=== PATIENT | female | born 1990 | race Caucasian/White ===

== ENCOUNTER → 2016-08-09 | Outpatient (CLI) | payer OTHER ==
[2016-08-09 10:45] LABS: Basophils # (auto) 0 uL; Basophils % (auto) 0.2 % (0.0-2.0); Eosinophils # (auto) 0 uL; Eosinophils % (auto) 0.5 % (0.0-7.0); Hematocrit 40.3 % (36.0-46.0); Hemoglobin 13.5 g/dL (12.2-16.2); Lymphocytes % (auto) 18.8 % (10.0-50.0); Mean Corpuscular Hemoglobin 29.6 pg (28.0-32.0); Mean Corpuscular Hgb Conc. 33.5 g/dL (32.0-36.0); Mean Corpuscular Volume 88.4 fL (80.0-100.0); Mean Platelet Volume 8.7 fL (7.4-10.4); Monocytes # (auto) 0.3 uL; Monocytes % (auto) 5.8 % (0.0-12.0); Neutrophils # (auto) 4.1 uL; Neutrophils % (auto) 74.7 % (37.0-80.0); Platelet Count (auto) 281 10^3/uL (140-450); White Blood Cell 5.5 10^3/uL (4.4-10.8)
== END | disposition home or self-care (01) ==
LOC: LAB 10:12
PROVIDERS: ATTEND Obstetrics & Gynecology
DX: Z34.80 Encounter for supervision of other normal pregnancy, unspecified trimester (principal); Z11.3 Encounter for screening for infections with a predominantly sexual mode of transmission
CPT/HCPCS: 36415; 83036; 84144; 84702; 85025; 86703; 86762; 86850; 86900; 86901; 87086; 87340

== ENCOUNTER → 2016-12-05 | Outpatient (CLI) | payer OTHER | END | disposition home or self-care (01) | LOC: CANPRECLI → LAB 07:51 | PROVIDERS: ATTEND Obstetrics & Gynecology | DX: Z53.9 Procedure and treatment not carried out, unspecified reason (principal) ==

== ENCOUNTER → 2016-12-13 | Outpatient (CLI) | payer OTHER ==
[2016-12-13 08:31] LABS: Basophils # (auto) 0.1 uL; Basophils % (auto) 0.8 % (0.0-2.0); Eosinophils # (auto) 0.1 uL; Hematocrit 35.8 % (36.0-46.0); Hemoglobin 12.3 g/dL (12.2-16.2); Lymphocytes # (auto) 1.8 uL; Lymphocytes % (auto) 20.8 % (10.0-50.0); Mean Corpuscular Hemoglobin 30.5 pg (28.0-32.0); Mean Corpuscular Hgb Conc. 34.4 g/dL (32.0-36.0); Mean Corpuscular Volume 88.6 fL (80.0-100.0); Mean Platelet Volume 8.2 fL (6.9-10.8); Monocytes # (auto) 0.6 uL; Monocytes % (auto) 6.7 % (0.0-12.0); Neutrophils # (auto) 6.3 uL; Neutrophils % (auto) 70.7 % (37.0-80.0); Platelet Count (auto) 201 10^3/uL (140-450); Red Cell Distribution Width 13.7 % (11.8-14.3); White Blood Cell 8.9 10^3/uL (4.4-10.8)
== END | disposition home or self-care (01) ==
LOC: LAB 08:14
PROVIDERS: ATTEND Obstetrics & Gynecology
DX: O99.810 Abnormal glucose complicating pregnancy (principal)
CPT/HCPCS: 36415; 82951; 83036; 85025

== ENCOUNTER → 2017-01-23 | Outpatient (CLI) | payer OTHER ==
[2017-01-23 10:03] LABS: Basophils # (auto) 0 uL; Basophils % (auto) 0.3 % (0.0-2.0); Eosinophils # (auto) 0 uL; Eosinophils % (auto) 0.5 % (0.0-7.0); Hematocrit 38.4 % (36.0-46.0); Lymphocytes # (auto) 1.3 uL; Lymphocytes % (auto) 15.5 % (10.0-50.0); Mean Corpuscular Hgb Conc. 33.7 g/dL (32.0-36.0); Mean Corpuscular Volume 88.8 fL (80.0-100.0); Monocytes # (auto) 0.5 uL; Monocytes % (auto) 6.4 % (0.0-12.0); Neutrophils # (auto) 6.4 uL; Neutrophils % (auto) 77.3 % (37.0-80.0); Nucleated Red Blood Cells % 0.1 %; Platelet Count (auto) 177 10^3/uL (140-450); Red Cell Distribution Width 13.5 % (11.8-14.3); White Blood Cell 8.3 10^3/uL (4.4-10.8)
== END | disposition home or self-care (01) ==
LOC: LAB 09:33
PROVIDERS: ATTEND Obstetrics & Gynecology
DX: Z34.80 Encounter for supervision of other normal pregnancy, unspecified trimester (principal); Z3A.00 Weeks of gestation of pregnancy not specified; N76.0 Acute vaginitis
CPT/HCPCS: 36415; 83036; 85025; 87081

== ENCOUNTER 2017-02-06 15:28 | Observation (INO) | payer OTHER ==
[2017-02-06 16:19] LABS: Basophils # (auto) 0 uL; Basophils % (auto) 0.1 % (0.0-2.0); Eosinophils # (auto) 0 uL; Eosinophils % (auto) 0.4 % (0.0-7.0); Hematocrit 39.2 % (36.0-46.0); Hemoglobin 13.5 g/dL (12.2-16.2); Lymphocytes # (auto) 1.5 uL; Lymphocytes % (auto) 17.1 % (10.0-50.0); Mean Corpuscular Hemoglobin 30.9 pg (28.0-32.0); Mean Corpuscular Hgb Conc. 34.5 g/dL (32.0-36.0); Mean Corpuscular Volume 89.6 fL (80.0-100.0); Mean Platelet Volume 9.7 fL (6.9-10.8); Monocytes # (auto) 0.5 uL; Neutrophils # (auto) 6.7 uL; Neutrophils % (auto) 76.4 % (37.0-80.0); Nucleated Red Blood Cells % 0.1 %; Platelet Count (auto) 175 10^3/uL (140-450); Red Cell Distribution Width 13.7 % (11.8-14.3); White Blood Cell 8.8 10^3/uL (4.4-10.8)
[2017-02-06 17:37] LABS: Albumin 2.5 g/dL (3.4-5.0); BUN/Creatinine Ratio 12.7; Bilirubin, Total 0.2 mg/dL (0.2-1.0); Calcium 8.6 mg/dL (8.5-10.1); Potassium 3.5 mmol/L (3.5-5.1); Total Protein 6.8 g/dL (6.4-8.2)
== END 2017-02-06 17:40 | disposition home or self-care (01) | DRG 782 ==
LOC: LAB 15:28 → LDRP 15:45
PROVIDERS: ADMIT Specialist; ATTEND Specialist
DX: O62.9 Abnormality of forces of labor, unspecified (principal); Z3A.37 37 weeks gestation of pregnancy
CPT/HCPCS: 36415; 59025; 80053; 81002; 84156; 84550; 85025; G0378

== ENCOUNTER 2017-02-13 14:03 | Observation (INO) | payer OTHER ==
[2017-02-13 15:44] LABS: Basophils # (auto) 0 uL; Basophils % (auto) 0.2 % (0.0-2.0); Eosinophils # (auto) 0 uL; Eosinophils % (auto) 0.4 % (0.0-7.0); Hematocrit 36.7 % (36.0-46.0); Hemoglobin 12.6 g/dL (12.2-16.2); Lymphocytes # (auto) 1.5 uL; Lymphocytes % (auto) 17.2 % (10.0-50.0); Mean Corpuscular Hemoglobin 30.3 pg (28.0-32.0); Mean Corpuscular Hgb Conc. 34.2 g/dL (32.0-36.0); Mean Corpuscular Volume 88.7 fL (80.0-100.0); Mean Platelet Volume 9.9 fL (6.9-10.8); Monocytes # (auto) 0.5 uL; Monocytes % (auto) 6.1 % (0.0-12.0); Neutrophils # (auto) 6.5 uL; Neutrophils % (auto) 76.1 % (37.0-80.0); Nucleated Red Blood Cells % 0.1 %; Platelet Count (auto) 175 10^3/uL (140-450); Red Cell Distribution Width 13.4 % (11.8-14.3); White Blood Cell 8.6 10^3/uL (4.4-10.8)
[2017-02-13 15:54] LABS: INR 0.93 (0.9-1.15); Partial Thromboplastin Time 27.5 sec (22.64-33.71); Prothrombin Time 10.1 sec (9.37-12.3)
[2017-02-13 15:54] LABS: Urine RBC None Seen /hpf (0 - 4)
[2017-02-13 15:55] LABS: Albumin 2.4 g/dL (3.4-5.0); BUN/Creatinine Ratio 13.4; Bilirubin, Total 0.2 mg/dL (0.2-1.0); Calcium 8.5 mg/dL (8.5-10.1); Potassium 3.7 mmol/L (3.5-5.1); Total Protein 6.4 g/dL (6.4-8.2); Uric Acid 4.5 mg/dL (2.6-6.0)
[2017-02-13 16:10] LABS: Urine Bilirubin Negative (Negative); Urine Blood Negative /uL (Negative); Urine Color Yellow (Yellow); Urine Glucose Normal (Normal); Urine Ketone Negative (Negative); Urine Nitrite Negative (Negative); Urine Squamous Epithelial Cell FEW /hpf (<5); Urine Urobilinogen Normal (Negative)
== END 2017-02-13 16:20 | disposition home or self-care (01) | DRG 781 ==
LOC: LDRP 14:03
PROVIDERS: ADMIT Obstetrics & Gynecology; ATTEND Obstetrics & Gynecology
DX: O26.893 Other specified pregnancy related conditions, third trimester (principal); N85.8 Other specified noninflammatory disorders of uterus; Z3A.38 38 weeks gestation of pregnancy
CPT/HCPCS: 36415; 59025; 80053; 81001; 81002; 84550; 85025; 85610; 85730; G0378

== ENCOUNTER 2017-02-22 10:40 | Observation (INO) | payer OTHER ==
[2017-02-22 12:24] LABS: Basophils # (auto) 0 uL; Basophils % (auto) 0.3 % (0.0-2.0); Eosinophils # (auto) 0 uL; Eosinophils % (auto) 0.5 % (0.0-7.0); Hematocrit 37.6 % (36.0-46.0); Lymphocytes # (auto) 1.6 uL; Lymphocytes % (auto) 18.1 % (10.0-50.0); Mean Corpuscular Hemoglobin 30.5 pg (28.0-32.0); Mean Corpuscular Hgb Conc. 34.4 g/dL (32.0-36.0); Mean Corpuscular Volume 88.6 fL (80.0-100.0); Mean Platelet Volume 10.2 fL (6.9-10.8); Monocytes # (auto) 0.5 uL; Monocytes % (auto) 5.3 % (0.0-12.0); Neutrophils # (auto) 6.6 uL; Neutrophils % (auto) 75.8 % (37.0-80.0); Nucleated Red Blood Cells % 0.1 %; Platelet Count (auto) 164 10^3/uL (140-450); Red Cell Distribution Width 13.7 % (11.8-14.3); White Blood Cell 8.7 10^3/uL (4.4-10.8)
[2017-02-22 12:38] LABS: INR 0.93 (0.9-1.15); Partial Thromboplastin Time 26.4 sec (22.64-33.71); Prothrombin Time 10.1 sec (9.37-12.3)
[2017-02-22 12:44] LABS: Albumin 2.5 g/dL (3.4-5.0); BUN/Creatinine Ratio 13.4; Bilirubin, Total 0.2 mg/dL (0.2-1.0); Calcium 8.4 mg/dL (8.5-10.1); Potassium 3.6 mmol/L (3.5-5.1); Total Protein 6.5 g/dL (6.4-8.2); Uric Acid 4.2 mg/dL (2.6-6.0)
[2017-02-22 13:51] LABS: Urine Bilirubin Negative (Negative); Urine Blood 1+ /uL (Negative); Urine Color Yellow (Yellow); Urine Glucose Normal (Normal); Urine Ketone Negative (Negative); Urine Nitrite Negative (Negative); Urine RBC 2 /hpf (0 - 4); Urine Squamous Epithelial Cell FEW /hpf (<5); Urine Urobilinogen Normal (Negative)
[2017-02-22] MEDS ORDERED: PREN-145 OR (14:50)
== END 2017-02-22 13:15 | disposition home or self-care (01) | DRG 781 ==
LOC: LDRP 10:40
PROVIDERS: ADMIT Obstetrics & Gynecology; ATTEND Obstetrics & Gynecology
DX: O13.3 Gestational [pregnancy-induced] hypertension without significant proteinuria, third trimester (principal); O24.410 Gestational diabetes mellitus in pregnancy, diet controlled; O26.893 Other specified pregnancy related conditions, third trimester; R10.9 Unspecified abdominal pain; Z3A.39 39 weeks gestation of pregnancy
CPT/HCPCS: 36415; 59025; 80053; 81001; 81002; 84156; 84550; 85025; 85362; 85610; 85730; G0378

== ENCOUNTER 2017-02-27 11:30 | Observation (INO) | payer OTHER ==
[~2017-02-27 11:30] MED LIST: PREN-145 OR
[2017-02-27 12:40] LABS: Basophils # (auto) 0 uL; Basophils % (auto) 0.3 % (0.0-2.0); Eosinophils # (auto) 0 uL; Eosinophils % (auto) 0.2 % (0.0-7.0); Hemoglobin 13.6 g/dL (12.2-16.2); Lymphocytes # (auto) 0.8 uL; Lymphocytes % (auto) 8.3 % (10.0-50.0); Mean Corpuscular Hemoglobin 30.3 pg (28.0-32.0); Mean Corpuscular Hgb Conc. 34.1 g/dL (32.0-36.0); Mean Corpuscular Volume 88.8 fL (80.0-100.0); Mean Platelet Volume 10.2 fL (6.9-10.8); Monocytes # (auto) 0.4 uL; Monocytes % (auto) 3.9 % (0.0-12.0); Neutrophils # (auto) 8.2 uL; Neutrophils % (auto) 87.3 % (37.0-80.0); Platelet Count (auto) 162 10^3/uL (140-450); Red Cell Distribution Width 13.8 % (11.8-14.3); White Blood Cell 9.5 10^3/uL (4.4-10.8)
[2017-02-27 12:53] LABS: INR 0.93 (0.9-1.15); Partial Thromboplastin Time 26.9 sec (22.64-33.71); Prothrombin Time 10.1 sec (9.37-12.3)
[2017-02-27 13:12] LABS: Albumin 2.5 g/dL (3.4-5.0); BUN/Creatinine Ratio 12.7; Bilirubin, Total 0.2 mg/dL (0.2-1.0); Calcium 8.5 mg/dL (8.5-10.1); Potassium 3.8 mmol/L (3.5-5.1); Total Protein 6.7 g/dL (6.4-8.2); Uric Acid 4.9 mg/dL (2.6-6.0)
[2017-02-27 13:27] LABS: Urine Bilirubin Negative (Negative); Urine Blood 1+ /uL (Negative); Urine Color Yellow (Yellow); Urine Glucose Normal (Normal); Urine Ketone Negative (Negative); Urine Nitrite Negative (Negative); Urine RBC <1 /hpf (0 - 4); Urine Squamous Epithelial Cell FEW /hpf (<5); Urine Urobilinogen Normal (Negative); Urine pH 5.5 (5.0-8.0)
== END 2017-02-27 13:35 | disposition home or self-care (01) | DRG 781 ==
LOC: LDRP 11:30
PROVIDERS: ADMIT Specialist; ATTEND Specialist
DX: O14.93 Unspecified pre-eclampsia, third trimester (principal); O24.419 Gestational diabetes mellitus in pregnancy, unspecified control; J45.909 Unspecified asthma, uncomplicated; O48.0 Post-term pregnancy; O13.3 Gestational [pregnancy-induced] hypertension without significant proteinuria, third trimester; O99.513 Diseases of the respiratory system complicating pregnancy, third trimester; Z3A.40 40 weeks gestation of pregnancy
CPT/HCPCS: 36415; 59025; 80053; 81001; 81002; 84550; 85025; 85362; 85610; 85730; 86850; 86900; 86901; G0378

== ENCOUNTER 2017-02-27 18:12 | Observation (INO) | payer OTHER, MEDICAID | END 2017-02-27 19:40 | disposition home or self-care (01) | DRG 782 | LOC: LDRP 18:12 | PROVIDERS: ADMIT Specialist; ATTEND Specialist | DX: O62.9 Abnormality of forces of labor, unspecified (principal); Z3A.40 40 weeks gestation of pregnancy | CPT/HCPCS: 59025; 81002; G0378 ==

== ENCOUNTER → 2019-06-16 | Outpatient (CLI) | payer OTHER, MEDICAID ==
[2019-06-16 16:03] LABS: Basophils # (auto) 0 10 ^3/uL (0-0.2); Basophils % (auto) 0.4 % (0.0-2.0); Eosinophils # (auto) 0.2 10 ^3/uL (0-0.8); Eosinophils % (auto) 2.4 % (0.0-7.0); Hematocrit 40.1 % (36.0-46.0); Hemoglobin 14.1 g/dL (12.2-16.2); Lymphocytes # (auto) 1.8 10 ^3/uL (0.4-5.4); Lymphocytes % (auto) 26.1 % (10.0-50.0); Mean Corpuscular Hemoglobin 29.9 pg (28.0-32.0); Mean Corpuscular Hgb Conc. 35.1 g/dL (32.0-36.0); Mean Corpuscular Volume 85.3 fL (80.0-100.0); Monocytes # (auto) 0.4 10 ^3/uL (0-1.3); Monocytes % (auto) 5.9 % (0.0-12.0); Neutrophils # (auto) 4.5 10 ^3/uL (1.6-8.6); Neutrophils % (auto) 65.2 % (37.0-80.0); Nucleated Red Blood Cells % 0.1 %; Platelet Count (auto) 282 10^3/uL (140-450); Red Blood Cells 4.71 10^6/uL (4.0-5.20); Red Cell Distribution Width 13.6 % (11.8-14.3); White Blood Cell 6.9 10^3/uL (4.4-10.8)
[2019-06-16 16:30] LABS: Alcohol, Urine < 3.0 mg/dL (0-5); Amphetamine Screen, Urine NEGATIVE (NEGATIVE); Barbiturate Scree,Urine NEGATIVE (NEGATIVE); Benzodiazephine Screen, Urine NEGATIVE (NEGATIVE); Cannabinoid Screen, Urine NEGATIVE (NEGATIVE); Cocaine Screen, Urine NEGATIVE (NEGATIVE); Opiate Scree,Urine NEGATIVE (NEGATIVE); Phencyclidine Screen, Urine NEGATIVE (NEGATIVE)
[2019-06-17 03:06] LABS: RPR Non Reactive (Non Reactive)
== END | disposition home or self-care (01) ==
LOC: LAB 15:37
PROVIDERS: ATTEND Obstetrics & Gynecology
DX: Z11.3 Encounter for screening for infections with a predominantly sexual mode of transmission (principal)
CPT/HCPCS: 36415; 80307; 81220; 83036; 84144; 84702; 85025; 86592; 86703; 86762; 86765; 86850; 86900; 86901; 87086; 87340

== ENCOUNTER 2019-11-28 10:20 | Observation (INO) | payer MEDICAID ==
[~2019-11-28] VITALS: Ht 198.1 cm; Wt 119.7 kg
[2019-11-28] MEDS ORDERED: METF-370 PO (11:37)
[2019-11-28] MEDS ORDERED: TERBUTALINE SULFATE 1 MG/ML 1ML VIAL SC SCH (11:45)
== END 2019-11-28 12:55 | disposition home or self-care (01) ==
LOC: LDRP 10:20
PROVIDERS: ADMIT Obstetrics & Gynecology; ATTEND Obstetrics & Gynecology
DX: O60.03 Preterm labor without delivery, third trimester (principal); O24.419 Gestational diabetes mellitus in pregnancy, unspecified control; O62.9 Abnormality of forces of labor, unspecified; Z3A.32 32 weeks gestation of pregnancy
CPT/HCPCS: 59025; 76818; 81002; 82948; 82962; 96372; G0378; J3105

== ENCOUNTER 2019-12-02 11:00 | Observation (INO) | payer MEDICAID ==
[~2019-12-02 11:00] MED LIST changes: +METF-370 PO
[2019-12-02] MEDS ORDERED: GLY25T GT (11:58)
== END 2019-12-02 12:33 | disposition home or self-care (01) ==
LOC: LDRP 11:00
PROVIDERS: ADMIT Specialist; ATTEND Specialist
DX: O60.03 Preterm labor without delivery, third trimester (principal); O24.419 Gestational diabetes mellitus in pregnancy, unspecified control; Z3A.33 33 weeks gestation of pregnancy
CPT/HCPCS: 59025; 76818; 81002; 82948; 82962; G0378

== ENCOUNTER 2019-12-03 17:20 | Observation (INO) | payer MEDICAID ==
[~2019-12-03 17:20] MED LIST changes: +GLY25T PO; -PREN-145 OR; +PREN-145 PO
== END 2019-12-03 19:42 | disposition home or self-care (01) ==
LOC: LDRP 17:20
PROVIDERS: ADMIT Specialist; ATTEND Specialist
DX: O36.8130 Decreased fetal movements, third trimester, not applicable or unspecified (principal); O24.415 Gestational diabetes mellitus in pregnancy, controlled by oral hypoglycemic drugs; O21.2 Late vomiting of pregnancy; O12.03 Gestational edema, third trimester; Z3A.32 32 weeks gestation of pregnancy; Z79.899 Other long term (current) drug therapy
CPT/HCPCS: 59025; 76818; 81002; 82962; G0378

== ENCOUNTER 2019-12-05 10:52 | Observation (INO) | payer MEDICAID ==
[~2019-12-05 10:52] MED LIST changes: +GLY25T GT; -GLY25T PO; +PREN-145 OR; -PREN-145 PO
== END 2019-12-05 11:56 | disposition home or self-care (01) ==
LOC: LDRP 10:52
PROVIDERS: ADMIT Specialist; ATTEND Specialist
DX: O24.419 Gestational diabetes mellitus in pregnancy, unspecified control (principal); O60.03 Preterm labor without delivery, third trimester; Z3A.32 32 weeks gestation of pregnancy
CPT/HCPCS: 59025; 76818; 81002; 82948; 82962; G0378

== ENCOUNTER 2019-12-09 08:19 | Observation (INO) | payer MEDICAID ==
[~2019-12-09 08:19] MED LIST changes: -GLY25T GT; +GLY25T PO; -PREN-145 OR; +PREN-145 PO
== END 2019-12-09 09:27 | disposition home or self-care (01) ==
LOC: LDRP 08:19
PROVIDERS: ADMIT Obstetrics & Gynecology; ATTEND Obstetrics & Gynecology
DX: O24.419 Gestational diabetes mellitus in pregnancy, unspecified control (principal); Z3A.33 33 weeks gestation of pregnancy
CPT/HCPCS: 59025; 76818; 81002; 82948; 82962; G0378

== ENCOUNTER 2019-12-11 19:34 | Observation (INO) | payer MEDICAID ==
[2019-12-11] MEDS ORDERED: NIF10C PO (21:21)
== END 2019-12-11 20:53 | disposition home or self-care (01) ==
LOC: LDRP 19:34
PROVIDERS: ADMIT Specialist; ATTEND Specialist
DX: O24.419 Gestational diabetes mellitus in pregnancy, unspecified control (principal); M79.89 Other specified soft tissue disorders; Z3A.33 33 weeks gestation of pregnancy
CPT/HCPCS: 59025; 81002; 82948; 82962; G0378

== ENCOUNTER 2019-12-15 09:49 | Observation (INO) | payer MEDICAID ==
[~2019-12-15 09:49] MED LIST changes: +NIF10C PO
== END 2019-12-15 11:08 | disposition home or self-care (01) ==
LOC: LDRP 09:49
PROVIDERS: ADMIT Obstetrics & Gynecology; ATTEND Obstetrics & Gynecology
DX: O60.03 Preterm labor without delivery, third trimester (principal); O24.415 Gestational diabetes mellitus in pregnancy, controlled by oral hypoglycemic drugs; O34.219 Maternal care for unspecified type scar from previous cesarean delivery; Z3A.33 33 weeks gestation of pregnancy
CPT/HCPCS: 59025; 76818; 81002; 82948; 82962; G0378

== ENCOUNTER 2019-12-18 08:45 | Observation (INO) | payer MEDICAID | END 2019-12-18 09:46 | disposition home or self-care (01) | LOC: LDRP 08:45 | PROVIDERS: ADMIT Specialist; ATTEND Specialist | DX: O24.419 Gestational diabetes mellitus in pregnancy, unspecified control (principal); Z3A.34 34 weeks gestation of pregnancy | CPT/HCPCS: 59025; 76818; 81002; 82962; G0378 ==

== ENCOUNTER 2019-12-23 10:17 | Observation (INO) | payer MEDICAID | END 2019-12-23 11:25 | disposition home or self-care (01) | LOC: LDRP 10:17 | PROVIDERS: ADMIT Obstetrics & Gynecology; ATTEND Obstetrics & Gynecology | DX: O24.419 Gestational diabetes mellitus in pregnancy, unspecified control (principal); Z3A.35 35 weeks gestation of pregnancy | CPT/HCPCS: 59025; 76818; 81002; 82948; 82962; G0378 ==

== ENCOUNTER 2019-12-26 10:35 | Observation (INO) | payer MEDICAID | END 2019-12-26 12:05 | disposition home or self-care (01) | LOC: LDRP 10:35 | PROVIDERS: ADMIT Specialist; ATTEND Specialist | DX: O24.419 Gestational diabetes mellitus in pregnancy, unspecified control (principal); Z3A.35 35 weeks gestation of pregnancy | CPT/HCPCS: 59025; 76818; 81002; 82962; G0378 ==

== ENCOUNTER 2019-12-30 08:30 | Observation (INO) | payer MEDICAID | END 2019-12-30 10:26 | disposition home or self-care (01) | LOC: LDRP 08:30 | PROVIDERS: ADMIT Obstetrics & Gynecology; ATTEND Obstetrics & Gynecology | DX: O24.419 Gestational diabetes mellitus in pregnancy, unspecified control (principal); Z3A.36 36 weeks gestation of pregnancy | CPT/HCPCS: 59025; 76818; 81002; 82948; 82962; G0378 ==

== ENCOUNTER 2020-01-01 16:31 | Observation (INO) | payer MEDICAID ==
[~2020-01-01] VITALS: Ht 167.6 cm; Wt 113.4 kg
[2020-01-01] MEDS ORDERED: TERBUTALINE SULFATE 1 MG/ML 1ML VIAL SC SCH (19:15)
[2020-01-01] MEDS ORDERED: TERBUTALINE SULFATE 1 MG/ML 1ML VIAL SC ONE (19:27)
[2020-01-01] MEDS ORDERED: NIFEdipine 10 MG CAP PO ONE (20:45)
== END 2020-01-01 22:25 | disposition home or self-care (01) ==
LOC: LDRP 16:31
PROVIDERS: ADMIT Obstetrics & Gynecology; ATTEND Obstetrics & Gynecology
DX: O24.419 Gestational diabetes mellitus in pregnancy, unspecified control (principal); Z3A.36 36 weeks gestation of pregnancy
CPT/HCPCS: 59025; 76818; 81002; 94760; 96372; G0378; J3105

== ENCOUNTER 2020-01-02 15:52 | Observation (INO) | payer MEDICAID ==
--- NOTE | 2020-01-02 14:25 | NUR ---
Ambulation: Patient OOB with standby assistance by RN. Patient ambulated to bathroom with steady gait. Patient able to void 500ML without difficulty. [facility] teaching provided with returned demonstration by patient. Clean gown provided and bed linen changed. Patient ambulated back to bed with steady gait and no distress noted. Addendum: 01/02/20 at 1624 by PRINCESS ROBB RN RN WRONG PT
[2020-01-02] MEDS ORDERED: TERBUTALINE SULFATE 1 MG/ML 1ML VIAL SC PRN ×2 (16:30→16:45)
[2020-01-02] MEDS ORDERED: TERBUTALINE SULFATE 1 MG/ML 1ML VIAL SC ONE (16:52)
== END 2020-01-02 20:30 | disposition home or self-care (01) ==
LOC: LDRP 15:52 → UNDOADMOB 15:52 → UNDODISOB 20:30
PROVIDERS: ADMIT Obstetrics & Gynecology; ATTEND Obstetrics & Gynecology
DX: O62.9 Abnormality of forces of labor, unspecified (principal); Z3A.36 36 weeks gestation of pregnancy
CPT/HCPCS: 59025; 81002; 94760; 96360; 96361; 96372; G0378; J3105

== ENCOUNTER 2020-01-05 10:13 | Observation (INO) | payer MEDICAID | END 2020-01-05 12:27 | disposition home or self-care (01) | LOC: LDRP 10:13 | PROVIDERS: ADMIT Obstetrics & Gynecology; ATTEND Obstetrics & Gynecology | DX: O24.419 Gestational diabetes mellitus in pregnancy, unspecified control (principal); O12.03 Gestational edema, third trimester; Z3A.36 36 weeks gestation of pregnancy | CPT/HCPCS: 59025; 76818; 81002; 82948; 82962; G0378 ==

== ENCOUNTER 2020-01-08 11:05 | Observation (INO) | payer MEDICAID | END 2020-01-08 12:35 | disposition home or self-care (01) | LOC: LDRP 11:05 | PROVIDERS: ADMIT Obstetrics & Gynecology; ATTEND Obstetrics & Gynecology | DX: O24.415 Gestational diabetes mellitus in pregnancy, controlled by oral hypoglycemic drugs (principal); O62.9 Abnormality of forces of labor, unspecified; O34.63 Maternal care for abnormality of vagina, third trimester; N89.8 Other specified noninflammatory disorders of vagina; Z79.84 Long term (current) use of oral hypoglycemic drugs; Z3A.37 37 weeks gestation of pregnancy | CPT/HCPCS: 59025; 76818; 81002; 82948; 82962; G0378 ==

== ENCOUNTER 2020-01-13 11:48 | Observation (INO) | payer MEDICAID | END 2020-01-13 13:50 | disposition home or self-care (01) | LOC: LDRP 11:48 | PROVIDERS: ADMIT Obstetrics & Gynecology; ATTEND Obstetrics & Gynecology | DX: O24.419 Gestational diabetes mellitus in pregnancy, unspecified control (principal); Z3A.38 38 weeks gestation of pregnancy | CPT/HCPCS: 59025; 76818; 81002; 82948; 82962; G0378 ==

== ENCOUNTER 2020-01-16 08:38 | Observation (INO) | payer MEDICAID | END 2020-01-16 09:58 | disposition home or self-care (01) | LOC: LDRP 08:38 | PROVIDERS: ADMIT Obstetrics & Gynecology; ATTEND Obstetrics & Gynecology | DX: O24.419 Gestational diabetes mellitus in pregnancy, unspecified control (principal); Z3A.38 38 weeks gestation of pregnancy | CPT/HCPCS: 59025; 76818; 81002; 82948; 82962; G0378 ==

== ENCOUNTER 2020-01-18 12:20 | Observation (INO) | payer MEDICAID | END 2020-01-18 14:30 | disposition home or self-care (01) | LOC: LDRP 12:20 | PROVIDERS: ADMIT Obstetrics & Gynecology; ATTEND Obstetrics & Gynecology | DX: O24.419 Gestational diabetes mellitus in pregnancy, unspecified control (principal); Z20.828 Contact with and (suspected) exposure to other viral communicable diseases; Z3A.38 38 weeks gestation of pregnancy | CPT/HCPCS: 59025; 76818; 81002; 82948; 82962; G0378; U0003 ==

== ENCOUNTER 2020-01-20 04:20 | Inpatient (IN) | payer MEDICAID ==
[~2020-01-20] VITALS: Ht 167.6 cm; Wt 122.5 kg
[2020-01-20] VITALS (14 sets, daily range): BP systolic 104–150; BP diastolic 54–82
[2020-01-20] MEDS ORDERED: LACTATED RINGER'S 1,000 ML IV SCH (04:45)
[2020-01-20] MEDS ORDERED: LACTATED RINGER'S 1,000 ML IV ONE (04:45)
[2020-01-20 05:35] LABS: Basophils # (auto) 0.1 10 ^3/uL (0-0.2); Basophils % (auto) 0.8 % (0.0-2.0); Eosinophils # (auto) 0.1 10 ^3/uL (0-0.8); Eosinophils % (auto) 1.8 % (0.0-7.0); Hematocrit 38.6 % (36.0-46.0); Hemoglobin 12.8 g/dL (12.2-16.2); Lymphocytes # (auto) 1.7 10 ^3/uL (0.4-5.4); Lymphocytes % (auto) 24.3 % (10.0-50.0); Mean Corpuscular Hemoglobin 28.8 pg (28.0-32.0); Mean Corpuscular Volume 87.3 fL (80.0-100.0); Monocytes # (auto) 0.5 10 ^3/uL (0-1.3); Monocytes % (auto) 6.4 % (0.0-12.0); Neutrophils # (auto) 4.8 10 ^3/uL (1.6-8.6); Neutrophils % (auto) 66.7 % (37.0-80.0); Platelet Count (auto) 157 10^3/uL (140-450); Red Blood Cells 4.43 10^6/uL (4.0-5.20); Red Cell Distribution Width 14.1 % (11.8-14.3); White Blood Cell 7.2 10^3/uL (4.4-10.8)
[2020-01-20 05:58] LABS: Potassium 3.6 mmol/L (3.5-5.1)
[2020-01-20 06:05] LABS: Urine Bacteria MANY /hpf (None Seen); Urine Blood Negative /uL (Negative); Urine Specific Gravity 1.021 (1.001-1.035); Urine WBC 20 /hpf (0 - 5)
[2020-01-20 06:06] LABS: Albumin 2.4 g/dL (3.4-5.0); BUN/Creatinine Ratio 14.1; Bilirubin, Total 0.2 mg/dL (0.2-1.0); Calcium 8.7 mg/dL (8.5-10.1); Total Protein 6.3 g/dL (6.4-8.2)
[2020-01-20 06:28] LABS: INR 0.96 (0.9-1.15); Partial Thromboplastin Time 25.6 sec (23.0-31.2)
[2020-01-20] MEDS ORDERED: TETRACAINE 1% INJ 2 ML VIAL IJ ONE (07:02)
[2020-01-20] MEDS ORDERED: SODIUM CHLORIDE LOCK 10 ML ONE (07:03)
[2020-01-20] MEDS ORDERED: ONDANSETRON HCL 4 MG/2 ML VIAL ONE (07:03)
[2020-01-20] MEDS ORDERED: BUPIVACAINE 0.5% P/F INJ 10 ML VIAL ONE (07:03)
[2020-01-20] MEDS ORDERED: EPINEPHrine HCL 1 MG/1 ML AMP ONE (07:03)
[2020-01-20] MEDS ORDERED: MIDAZOLAM HCL 1MG/1ML-2 ML VIAL ONE (07:03)
[2020-01-20] MEDS ORDERED: fentaNYL CITRATE 100 MCG/2 ML VL ONE (07:03)
[2020-01-20] MEDS ORDERED: MORPHINE SULF(PF) 0.5MG/ML 10ML VIAL ONE (07:03)
[2020-01-20] MEDS ORDERED: oxyTOCIN 10 UNIT/ML 10ML VIAL ONE (07:03)
[2020-01-20] MEDS: ceFAZolin 1GM/50ML 50 ML IV ONE ×2 (07:25→07:30)
[2020-01-20] MEDS ORDERED: LACT. RINGERS/OXYTOCIN 20UNITS 1,000 ML IV ONE (07:30)
[2020-01-20] MEDS ORDERED: ONDANSETRON HCL 4 MG/2 ML VIAL IV PRN (07:30)
[2020-01-20] MEDS ORDERED: MORPHINE SULFATE 4 MG/ML SYR/VIAL IV PRN (09:15)
[2020-01-20] MEDS ORDERED: METOCLOPRAMIDE HCL 5MG/ml INJ 2ml VIAL IV PRN (09:15)
[2020-01-20] MEDS ORDERED: KETOROLAC TROMETH 30 MG/ML 1ML VIAL IV ONE (09:15)
[2020-01-20] MEDS ORDERED: diphenhdrAMINE HCL 50 MG/1 ML VL IV PRN (09:15)
[2020-01-20] MEDS ORDERED: HYDROmorphone HCL 2 MG/ML VL IV PRN (09:15)
[2020-01-20] MEDS ORDERED: ACCU-CHEK COMFORT CURVE STRIP VI ONE (09:15)
[2020-01-20] MEDS: MORPHINE SULFATE 4 MG/ML SYR/VIAL IV PRN ×2 (15:07→19:27)
[2020-01-20] MEDS: ceFAZolin 1GM/50ML 50 ML IV SCH ×2 (15:30→23:12)
[2020-01-20 21:26] LABS: Basophils # (auto) 0 10 ^3/uL (0-0.2); Basophils % (auto) 0.2 % (0.0-2.0); Eosinophils # (auto) 0.1 10 ^3/uL (0-0.8); Hematocrit 37.6 % (36.0-46.0); Hemoglobin 12.6 g/dL (12.2-16.2); Lymphocytes # (auto) 1.1 10 ^3/uL (0.4-5.4); Lymphocytes % (auto) 11.8 % (10.0-50.0); Mean Corpuscular Hemoglobin 29.4 pg (28.0-32.0); Mean Corpuscular Hgb Conc. 33.6 g/dL (32.0-36.0); Mean Corpuscular Volume 87.5 fL (80.0-100.0); Monocytes # (auto) 0.4 10 ^3/uL (0-1.3); Monocytes % (auto) 4.5 % (0.0-12.0); Neutrophils # (auto) 7.7 10 ^3/uL (1.6-8.6); Neutrophils % (auto) 82.5 % (37.0-80.0); Platelet Count (auto) 141 10^3/uL (140-450); Red Cell Distribution Width 14.4 % (11.8-14.3); White Blood Cell 9.3 10^3/uL (4.4-10.8)
[2020-01-21 03:00] VITALS: BP 113/70
[2020-01-21] MEDS: MORPHINE SULFATE 4 MG/ML SYR/VIAL IV PRN (04:15)
[2020-01-21 05:06] LABS: RPR Non Reactive (Non Reactive)
[2020-01-21 07:00] VITALS: BP 125/79
[2020-01-21 07:25] LABS: Basophils # (auto) 0.1 10 ^3/uL (0-0.2); Basophils % (auto) 0.8 % (0.0-2.0); Eosinophils # (auto) 0.1 10 ^3/uL (0-0.8); Eosinophils % (auto) 1.6 % (0.0-7.0); Hematocrit 39.9 % (36.0-46.0); Hemoglobin 12.8 g/dL (12.2-16.2); Lymphocytes # (auto) 1.3 10 ^3/uL (0.4-5.4); Lymphocytes % (auto) 14.5 % (10.0-50.0); Mean Corpuscular Hemoglobin 28.5 pg (28.0-32.0); Mean Corpuscular Hgb Conc. 32.1 g/dL (32.0-36.0); Mean Corpuscular Volume 88.6 fL (80.0-100.0); Monocytes # (auto) 0.4 10 ^3/uL (0-1.3); Monocytes % (auto) 4.8 % (0.0-12.0); Neutrophils # (auto) 7.2 10 ^3/uL (1.6-8.6); Neutrophils % (auto) 78.3 % (37.0-80.0); Platelet Count (auto) 155 10^3/uL (140-450); Red Cell Distribution Width 14.4 % (11.8-14.3); White Blood Cell 9.1 10^3/uL (4.4-10.8)
[2020-01-21] MEDS ORDERED: ceFAZolin 1GM/50ML 50 ML IV SCH (07:30)
[2020-01-21] MEDS ORDERED: LACTATED RINGER'S 1,000 ML IV SCH (07:30)
[2020-01-21] MEDS ORDERED: HYDROcodone-ACET 5/325MG TAB PO PRN (07:30)
[2020-01-21] MEDS: HYDROcodone-ACET 5/325MG TAB PO PRN ×4 (07:35→21:52)
[2020-01-21] MEDS: DOCUSATE SOD 100 MG CAP PO SCH ×2 (09:57→21:52)
[2020-01-21] MEDS: IBUPROFEN 800 MG TAB PO PRN (10:00)
[2020-01-21 10:50] VITALS: BP 122/73
[2020-01-21 15:25] VITALS: BP 132/77
[2020-01-21 19:15] VITALS: BP 147/83
[2020-01-21] MEDS ORDERED: fentaNYL CITRATE 100 MCG/2 ML VL ONE (19:30)
[2020-01-21] MEDS ORDERED: ONDANSETRON HCL 4 MG/2 ML VIAL ONE (19:30)
[2020-01-21 22:48] VITALS: BP 132/71
[2020-01-22] MEDS: IBUPROFEN 800 MG TAB PO PRN ×2 (01:48→14:40)
[2020-01-22 03:24] VITALS: BP 124/69
[2020-01-22] MEDS: SIMETHICONE 80 MG CHEWABLE TABLET PO PRN (05:53)
[2020-01-22] MEDS: HYDROcodone-ACET 5/325MG TAB PO PRN ×4 (05:54→21:59)
[2020-01-22 06:51] VITALS: BP 115/61
[2020-01-22] MEDS: DOCUSATE SOD 100 MG CAP PO SCH ×2 (10:22→21:59)
[2020-01-22 11:00] VITALS: BP 139/85
[2020-01-22 15:00] VITALS: BP 135/74
[2020-01-22 18:30] VITALS: BP 141/79
[2020-01-22] MEDS ORDERED: BISACODYL 10 MG RECT SUPP PR ONE (21:45)
[2020-01-22 23:30] VITALS: BP 125/74
[2020-01-23 03:30] VITALS: BP 133/74
[2020-01-23] MEDS: HYDROcodone-ACET 5/325MG TAB PO PRN ×2 (03:30→11:53)
[2020-01-23 07:00] VITALS: BP 140/92
[2020-01-23] MEDS: DOCUSATE SOD 100 MG CAP PO SCH (08:07)
[2020-01-23] MEDS: IBUPROFEN 800 MG TAB PO PRN (08:08)
[2020-01-23] MEDS: SIMETHICONE 80 MG CHEWABLE TABLET PO PRN (08:08)
[2020-01-23 11:00] VITALS: BP 136/88
== END 2020-01-23 12:00 | disposition home or self-care (01) | DRG 540 ==
LOC: LDRP 04:20
PROVIDERS: ADMIT Obstetrics & Gynecology; ATTEND Obstetrics & Gynecology
PROC: 10D00Z1 Extraction of Products of Conception, Low, Open Approach (ICD-10-PCS; principal; 2020-01-20 07:21)
PROC: 3E0R3GC Introduction of Other Therapeutic Substance into Spinal Canal, Percutaneous Approach (ICD-10-PCS; 2020-01-21)
DX: O34.219 Maternal care for unspecified type scar from previous cesarean delivery (principal); O99.214 Obesity complicating childbirth; O24.429 Gestational diabetes mellitus in childbirth, unspecified control; O99.52 Diseases of the respiratory system complicating childbirth; E66.01 Morbid (severe) obesity due to excess calories; J45.909 Unspecified asthma, uncomplicated; Z37.0 Single live birth; O89.4 Spinal and epidural anesthesia-induced headache during the puerperium; Z3A.00 Weeks of gestation of pregnancy not specified
CPT/HCPCS: 36415; 59025; 80053; 81001; 81002; 85025; 85610; 85730; 86592; 86850; 86900; 86901; 96360; 96361; 96365; G0378; J0171; J0690; J2250; J2405; J2590; J3490